=== PATIENT | female | born 1995 | race Hispanic/Latino ===

== ENCOUNTER 2025-07-10 09:22 | Outpatient (CLI) | payer MEDICAID | END 2025-07-10 09:23 | disposition home or self-care (01) | LOC: CSHULT 09:22 | PROVIDERS: ATTEND Family Medicine | DX: O24.112 Pre-existing type 2 diabetes mellitus, in pregnancy, second trimester (principal); Z3A.23 23 weeks gestation of pregnancy | CPT/HCPCS: 76805 ==

== ENCOUNTER 2025-08-19 16:06 | Inpatient (IN) | payer OTHER ==
[2025-08-19 16:24] VITALS: BMI 37.1
[2025-08-19 17:04] LABS: Protein, Urine Random Quant 15.0 mg/dL (1-14)
[2025-08-19 17:06] LABS: #Basophils 0.03 10x3/uL (0.0-0.2); #Eosinophils 0.05 10x3/uL (0.0-0.5); #Monocytes 0.61 10x3/uL (0.0-1.1); #Neutrophils 8.22 10x3/uL (1.5-8.4); %Basophils 0.3 % (0.0-2.0); %Eosinophils 0.4 % (0.0-6.0); %Lymphocytes 22.5 % (18.0-47.0); %Monocytes 5.3 % (0.0-10.0); %Neutrophils 71.3 % (40.0-75.0); Hematocrit 29.6 % (34.9-44.5); Hemoglobin 10.7 g/dL (12.0-15.5); Mean Corpuscular Hemoglobin 31.8 pg (27.0-33.0); Mean Corpuscular Volume 87.8 fL (81.6-98.3); Platelet Count 244 10x3/uL (150-450); Red Blood Cell (RBC) Count 3.37 10x6/uL (3.90-5.03); White Blood Cell (WBC) Count 11.53 10x3/uL (3.5-10.5)
[2025-08-19 17:22] LABS: ALT (SGPT) 13 U/L (Less than 34); AST (SGOT) 18 U/L (11-34); Albumin 2.6 g/dL (3.1-4.5); Alkaline Phosphatase 76 U/L (40-110); Anion Gap 14 mmol/L (10-20); BUN (Urea Nitrogen) 6 mg/dL (7.0-18.7); Bilirubin, Total 0.2 mg/dL (0.3-1.2); Calc. Creatinine Clearance 241 mL/min (70-130); Calcium 8.9 mg/dL (7.8-10.44); Carbon Dioxide 21 mmol/L (22-29); Chloride 106 mmol/L (98-107); Globulin 3.9 g/dL (2.4-3.5); Glucose 86 mg/dL (70-105); Potassium 3.5 mmol/L (3.5-5.1); Sodium 137 mmol/L (136-145)
[2025-08-19] MEDS ORDERED: Carboprost 250 MCG/ML AMP IM PRN (20:30)
[2025-08-19] MEDS ORDERED: Diphenoxylate HCl/Atropine Tablet PO PRN (20:30)
[2025-08-19] MEDS ORDERED: Oxytocin 30 units/NS 500 ML 500 ML IV SCH (20:30)
[2025-08-19] MEDS ORDERED: Dextrose 50% Abboject 50 ML SYRINGE SLOW IVP PRN (20:30)
[2025-08-19] MEDS ORDERED: Tranexamic Acid 1,000 MG/10 ML VIAL IVP PRN (20:30)
[2025-08-19] MEDS ORDERED: hydrALAZINE 20 MG/ML VIAL SLOW IVP PRN (20:30)
[2025-08-19] MEDS ORDERED: Calcium Gluc 4.6 MEQ/10 ML (100 MG/ML) SLOW IVP PRN (20:30)
[2025-08-19] MEDS ORDERED: Glucagon 1 MG/ML KIT IM PRN (20:30)
[2025-08-19] MEDS: Lantus 1000 UNITS/10 ML VIAL SC SCH (21:34)
[2025-08-19 22:04] LABS: Syphilis Antibody Index 0.06 S/CO (<1.00 Non-Reactive)
[2025-08-19 22:06] LABS: Hep B Surf Ag - L&D Non-Reactive S/CO (NonReactive)
[2025-08-19] MEDS: Acetaminophen 500 MG TAB PO PRN (22:15)
[2025-08-20] MEDS: Ondansetron PF 4 MG/2 ML Vial IVP PRN (02:29)
[2025-08-21] MEDS: hydrALAZINE 20 MG/ML VIAL ONE (07:42)
[2025-08-21] MEDS: Lantus 1000 UNITS/10 ML VIAL SC SCH (21:27)
[2025-08-22] MEDS: hydrALAZINE 20 MG/ML VIAL SLOW IVP PRN ×2 (07:32→07:55)
[2025-08-22] MEDS: NIFEdipine XL 30 MG ER.TAB PO SCH (08:15)
[2025-08-23] MEDS ORDERED: NIFEdipine XL 30 MG ER.TAB PO SCH (09:00)
[2025-08-24] MEDS: hydrALAZINE 20 MG/ML VIAL SLOW IVP PRN (23:02)
[2025-08-25 06:11] LABS: Hematocrit 31.1 % (34.9-44.5); Hemoglobin 11.1 g/dL (12.0-15.5); Mean Corpuscular Hemoglobin 31.5 pg (27.0-33.0); Mean Corpuscular Volume 88.4 fL (81.6-98.3); Platelet Count 238 10x3/uL (150-450); Red Blood Cell (RBC) Count 3.52 10x6/uL (3.90-5.03); White Blood Cell (WBC) Count 9.28 10x3/uL (3.5-10.5)
[2025-08-25 06:26] LABS: ALT (SGPT) 16 U/L (Less than 34); AST (SGOT) 18 U/L (11-34); Albumin 2.3 g/dL (3.1-4.5); Alkaline Phosphatase 77 U/L (40-110); Anion Gap 11 mmol/L (10-20); BUN (Urea Nitrogen) 5 mg/dL (7.0-18.7); Bilirubin, Total 0.2 mg/dL (0.3-1.2); Calc. Creatinine Clearance 256 mL/min (70-130); Calcium 8.3 mg/dL (7.8-10.44); Carbon Dioxide 20 mmol/L (22-29); Chloride 107 mmol/L (98-107); Globulin 3.6 g/dL (2.4-3.5); Glucose 79 mg/dL (70-105); Potassium 3.7 mmol/L (3.5-5.1); Sodium 134 mmol/L (136-145)
[2025-08-25 21:04] LABS: Protein, Urine Random Quant 11.0 mg/dL (1-14)
[2025-08-25] MEDS: Magnesium Sulfate 20 gm/500 ml 20 GM/500 ML BAG ONE (21:17)
[2025-08-25] MEDS: NIFEdipine XL 30 MG ER.TAB PO SCH (22:22)
[2025-08-25] MEDS ORDERED: Magnesium Sulfate 20 gm/500 ml 4 GM/100 ML BAG IVPB SCH (22:45)
[2025-08-26] MEDS: Lantus 1000 UNITS/10 ML VIAL SC SCH ×2 (00:49→21:50)
[2025-08-26] MEDS: NIFEdipine XL 60 MG ER.TAB PO SCH ×3 (05:14→20:50)
[2025-08-26] MEDS: Magnesium Sulfate 20 gm/500 ml 20 GM/500 ML BAG IVPB PRN (05:39)
[2025-08-26] MEDS: Fioricet 325/50/40 mg Tablet PO SCH (10:48)
[2025-08-26 14:07] VITALS: BMI 37.1
[2025-08-26 15:37] LABS: Magnesium 5.8 mg/dL (1.6-2.6)
[2025-08-26] MEDS: Calcium Carbonate 500 MG ChewTAB PO SCH (19:16)
[2025-08-26] MEDS: NIFEdipine XL 30 MG ER.TAB PO SCH (19:16)
[2025-08-26] MEDS: hydrALAZINE 20 MG/ML VIAL ONE (19:17)
[2025-08-28] MEDS: Famotidine 20 MG TAB PO SCH (22:46)
[2025-08-28] MEDS: Calcium Carbonate 500 MG ChewTAB PO SCH (22:46)
[2025-08-29 09:57] LABS: Hematocrit 33.2 % (34.9-44.5); Hemoglobin 11.7 g/dL (12.0-15.5); Mean Corpuscular Hemoglobin 31.4 pg (27.0-33.0); Mean Corpuscular Volume 89.0 fL (81.6-98.3); Platelet Count 236 10x3/uL (150-450); Red Blood Cell (RBC) Count 3.73 10x6/uL (3.90-5.03); White Blood Cell (WBC) Count 8.40 10x3/uL (3.5-10.5)
[2025-08-29 10:12] LABS: ALT (SGPT) 36 U/L (Less than 34); AST (SGOT) 51 U/L (11-34); Albumin 2.6 g/dL (3.1-4.5); Alkaline Phosphatase 103 U/L (40-110); Anion Gap 11 mmol/L (10-20); BUN (Urea Nitrogen) 6 mg/dL (7.0-18.7); Bilirubin, Total 0.3 mg/dL (0.3-1.2); Calc. Creatinine Clearance 251 mL/min (70-130); Calcium 9.1 mg/dL (7.8-10.44); Carbon Dioxide 20 mmol/L (22-29); Chloride 107 mmol/L (98-107); Globulin 3.9 g/dL (2.4-3.5); Glucose 75 mg/dL (70-105); Potassium 4.0 mmol/L (3.5-5.1); Sodium 134 mmol/L (136-145)
[2025-08-29 17:02] LABS: Protein, Urine Random Quant 12.0 mg/dL (1-14)
[2025-08-29] MEDS: Famotidine 20 MG TAB PO SCH (21:34)
[2025-08-30 09:35] LABS: ALT (SGPT) 45 U/L (Less than 34); AST (SGOT) 44 U/L (11-34); Albumin 2.8 g/dL (3.1-4.5); Alkaline Phosphatase 119 U/L (40-110); Anion Gap 12 mmol/L (10-20); BUN (Urea Nitrogen) 8 mg/dL (7.0-18.7); Bilirubin, Total 0.3 mg/dL (0.3-1.2); Calc. Creatinine Clearance 227 mL/min (70-130); Calcium 8.8 mg/dL (7.8-10.44); Carbon Dioxide 20 mmol/L (22-29); Chloride 108 mmol/L (98-107); Globulin 3.8 g/dL (2.4-3.5); Glucose 89 mg/dL (70-105); Potassium 4.1 mmol/L (3.5-5.1); Sodium 136 mmol/L (136-145)
[2025-08-30] MEDS ORDERED: diphenhydrAMINE 50 MG/ML VIAL IVP PRN (10:55)
[2025-08-30] MEDS ORDERED: Meperidine HCl/PF 25 MG (1 mL) VIAL SLOW IVP PRN (10:55)
[2025-08-30] MEDS ORDERED: Ketorolac Tromethamine 30 MG (1 mL) VIAL IVP PRN (10:55)
[2025-08-30] MEDS ORDERED: Ondansetron PF 4 MG/2 ML Vial IVP PRN ×2 (10:55)
[2025-08-30] MEDS ORDERED: Ketorolac Tromethamine 30 MG (1 mL) VIAL IVP SCH (11:00)
[2025-08-30] MEDS: Azithromycin 500 MG VIAL ONE (12:11)
[2025-08-30] MEDS: Famotidine/PF 20 mg/2ml Vial ONE (13:02)
[2025-08-30] MEDS: CEFAZOLIN 2 GM VIAL ONE (13:02)
[2025-08-30] MEDS: Dexamethasone 10 MG/ML VIAL ONE (13:03)
[2025-08-30] MEDS: PHENYLEPHRINE-NS 100 MCG/ML 10 ML SYRINGE ONE (13:03)
[2025-08-30] MEDS: Oxytocin 10 UNITS/ML VIAL ONE (13:03)
[2025-08-30] MEDS: Ondansetron PF 4 MG/2 ML Vial ONE (13:03)
[2025-08-30] MEDS: Tranexamic Acid 1,000 MG/10 ML VIAL ONE (13:04)
[2025-08-30] MEDS ORDERED: Meperidine HCl/PF 25 MG (1 mL) VIAL IM PRN (13:51)
[2025-08-30] MEDS ORDERED: Bisacodyl 10 MG SUPP PR PRN (13:51)
[2025-08-30] MEDS ORDERED: Calcium Gluc 4.6 MEQ/10 ML (100 MG/ML) SLOW IVP PRN (13:51)
[2025-08-30] MEDS ORDERED: HYDROcodone/Acetaminophen 5/325 mg Tablet PO PRN (13:51)
[2025-08-30] MEDS ORDERED: Lanolin Ointment 7 GM TUBE TOP PRN (13:51)
[2025-08-30] MEDS ORDERED: diphenhydrAMINE 25 MG CAP PO PRN (13:51)
[2025-08-30] MEDS ORDERED: hydrALAZINE 20 MG/ML VIAL SLOW IVP PRN (13:51)
[2025-08-30] MEDS: Ondansetron PF 4 MG/2 ML Vial IVP PRN (16:55)
[2025-08-30] MEDS: Ketorolac Tromethamine 30 MG (1 mL) VIAL IVP SCH (17:57)
[2025-08-30] MEDS: Magnesium Sulfate 20 gm/500 ml 20 GM/500 ML BAG IVPB SCH (20:29)
[2025-08-31] MEDS: Ferrous Sulfate 325 MG TAB PO SCH (01:48)
[2025-08-31 05:28] LABS: Hematocrit 35.3 % (34.9-44.5); Hemoglobin 12.3 g/dL (12.0-15.5); Mean Corpuscular Hemoglobin 30.8 pg (27.0-33.0); Mean Corpuscular Volume 88.5 fL (81.6-98.3); Platelet Count 291 10x3/uL (150-450); Red Blood Cell (RBC) Count 3.99 10x6/uL (3.90-5.03); White Blood Cell (WBC) Count 14.88 10x3/uL (3.5-10.5)
[2025-08-31 06:03] LABS: Magnesium 6.5 mg/dL (1.6-2.6)
[2025-08-31] MEDS ORDERED: Glucagon 1 MG/ML KIT IM PRN (12:42)
[2025-08-31] MEDS ORDERED: Dextrose 50% Abboject 50 ML SYRINGE SLOW IVP PRN (12:42)
[2025-08-31] MEDS: Ibuprofen 800 MG TAB PO SCH (13:29)
[2025-08-31] MEDS: metFORMIN 500 MG TAB PO SCH (17:11)
[2025-08-31] MEDS: Lantus 1000 UNITS/10 ML VIAL SC SCH (21:56)
[2025-09-01] MEDS: HYDROcodone/Acetaminophen 5/325 mg Tablet PO PRN (04:26)
[2025-09-01] MEDS: metroNIDAZOLE 500 MG TAB PO SCH (15:24)
[2025-09-01] MEDS: Cephalexin 500 MG CAP PO SCH (15:24)
[2025-09-02] MEDS: hydrALAZINE 20 MG/ML VIAL SLOW IVP PRN (13:32)
[2025-09-03] MEDS: metFORMIN 500 MG TAB PO SCH (08:45)
[2025-09-03] MEDS: hydrALAZINE 20 MG/ML VIAL SLOW IVP PRN (19:02)
[2025-09-04] MEDS: metFORMIN 500 MG TAB PO SCH (08:51)
[2025-09-04 12:04] VITALS: TEMP 98.4
[2025-09-04 14:32] VITALS: BP 120/84
== END 2025-09-04 16:35 | disposition home or self-care (01) | DRG 788 ==
LOC: CSHLD/OP 16:06 → CSHLD 21:17 → CSHANTE 08-20 23:00 → CSHLD 08-21 16:00 → CSHPP 08-31 12:45
PROVIDERS: ADMIT Family Medicine; ATTEND Family Medicine
PROC: 4A1HXCZ Monitoring of Products of Conception, Cardiac Rate, External Approach (ICD-10-PCS; 2025-08-19)
PROC: 10D00Z1 Extraction of Products of Conception, Low, Open Approach (ICD-10-PCS; principal; 2025-08-30)
DX: O24.12 Pre-existing type 2 diabetes mellitus, in childbirth (principal); Z3A.29 29 weeks gestation of pregnancy; Z37.0 Single live birth; Z79.82 Long term (current) use of aspirin; Z79.4 Long term (current) use of insulin; O99.824 Streptococcus B carrier state complicating childbirth; O14.14 Severe pre-eclampsia complicating childbirth; O13.4 Gestational [pregnancy-induced] hypertension without significant proteinuria, complicating childbirth; O99.214 Obesity complicating childbirth
CPT/HCPCS: 36415; 36416; 51702; 76815; 76819; 80053; 82570; 83036; 83735; 84156; 85025; 85027; 86780; 86850; 86900; 86901; 87340; 88307; 93005; 93010; 99285; C1889; J0360; J0456; J0702; J1100; J1815; J1885; J2274; J2405; J2550; J2590; J3010; J3475; J7120